=== PATIENT | female | born 1940 | race Caucasian/White ===

== ENCOUNTER 2020-08-27 10:55 | Inpatient (IN) | payer MEDICARE, OTHER ==
[~2020-08-27] VITALS: Ht 170.2 cm; Wt 74.0 kg
[~2020-08-27 10:55] MED LIST: ATENOLOL100 MG PO; HYDROCHLOROTH12.5 M1 PO; LORAZEPAM1 MG PO; OMEPRAZOLE20 MG PO; PERCOCET 7.5-31 EACH PO
[2020-08-27] MEDS ORDERED: LEVETIRACETAM500 MG PO (11:09)
[2020-08-27] MEDS ORDERED: POTASSIUM CHLO10 ME2 PO (11:09)
[2020-08-27] MEDS ORDERED: WARFARIN SODIUM1 MG PO (11:09)
[2020-08-27] MEDS ORDERED: ROSUVASTATIN CA20 MG PO (11:10)
[2020-08-27] MEDS ORDERED: HYDROCHLOROTHIA25 MG PO (11:10)
--- NOTE | 2020-08-27 15:03 | EKG ---
[facility] [address] [place], [place] [address] Signed Normal sinus rhythm T wave abnormality, consider inferior ischemia Abnormal ECG No previous ECGs available Confirmed by SAGE DAVIES MD ([id number]) on 08/27/2020 3:02:57 PM Electronically Signed By: SAGE DAVIES MD 08/27/20 1503 PATIENT NAME: RASHEL RING Electrocardiogram DATE OF : 40 PHYSICIAN: SAGE DAVIES MD REPORT #: [id number] REPORT IS CONFIDENTIAL AND NOT TO BE RELEASED WITHOUT AUTHORIZATION
[2020-08-27] MEDS ORDERED: FUROSEMIDE20 MG PO (17:41)
--- NOTE | 2020-08-27 19:30 | NUR ---
CALL LIGHT ANSWERED. 1 PA TO THE BATHROOM AND BACK TO BED. CHANGED BED LINEN. PATIENT HAD BOWEL MOVEMENT ON BED. PULL UPS PROVIDED. CALL LIGHT WITHIN REACH. LEFT.
--- NOTE | 2020-08-27 19:37 | NUR ---
RECEIVED REPORT FROM LUIGI, @ 1905. PT WITH NO NEEDS AT THIS TIME.
--- NOTE | 2020-08-27 20:15 | NUR ---
BLOOD SENT TO LAB. NADIRA OUT OF RIGHT AC IV. PT ANXIOUS ABOUT NEEDS AND FURTHER BLOOD DRAWS. IV FLUSHES WELL AFTER WITH NS.
--- NOTE | 2020-08-27 20:20 | NUR ---
ASSESSMENT COMPLETE. PT HAS TROUBLE ARTICULATING WORDS, BUT ABLE TO MAKE NEEDS KNOWN. DENIES PAIN, ON 4L O2/NC, SATS @99. TURNED TO 2L O2, WILL SPOT CHECK. DENIES SOB, DID NOT KNOW WHY SHE WAS ADMITTED. TEL#6, SR. DID HAVE TROUBLE SQUEEZING HANDS DURING ASSESSMENT, WAS ABLE TO SQUEEZE EASILY WITH THE LEFT, BUT HAD TO TRY THE RIGHT SEVERAL TIMES. CALL LIGHT WITHIN REACH. NO OTHER NEEDS.
--- NOTE | 2020-08-27 20:40 | NUR ---
PT REQUIRED APPLESAUCE WITH HER MEDICATION. DOESN'T REMEMBER THAT SHE TAKES KEPPRA, (ON HER HOME MEDICATION LIST) STATES HER KEEPS TRACK OF HER MEDICATIONS. STATES THAT SHE TRIES TO SWALLOW A PILL WITHOUT APPLESAUCE, BUT JUST CAN'T. SAID MAYBE HER BRAIN STOPS HER FROM DOING IT. NOTED THAT HER RIGHT HAND IS WEAKER THAN LEFT, PER HER NORMAL SHE SAID. LIGHTS OFF PER HER CHOICE, SMALL REMOTE TV GIVEN. ICE WATER AND TEA WITHIN REACH.
--- NOTE | 2020-08-27 22:16 | NUR ---
RECEIVED CRITICAL LAB VALUE FROM ANTWAN IN THE LAB. ON FLOOR. MD AWARE OF THE LAB VALUES.
--- NOTE | 2020-08-27 23:11 | NUR ---
PT UP TO BR WITH 1PA TO VOID SMALL AMOUNT CONCENTRATED FOUL SMELLING URINE. GAIT WEAK BUT STEADY. BACK TO BED, ROSITA WELL. BAG 1 OF 2 IV POTASSIUM INFUSING WITH LIDOCAINE. PT C/O PAIN AT INFUSION SITE. IV FLUSHED WITH BRISK BLOOD RETURN NOTED. RATE OF INFUSION DECREASED AND WARM BLANKET PLACED. PT REPORTS PAIN IMPROVED. IV CALCIUM INFUSING WNL. DENIES FURTHER NEEDS AT THIS TIME. CALL LIGHT IN REACH.
--- NOTE | 2020-08-27 23:56 | NUR ---
RECEIVED REPORT FROM JESSICA FLOYD. PATIENT IS RESTING IN BED. IV IS NO LONGER PATENT. NEW IV STARTED IN RIGHT HAND. POTASSIUM INFUSING PER ORDER. PATIENT DENIES ANY NEEDS. CALL LIGHT IN REACH.
--- NOTE | 2020-08-28 00:47 | NUR ---
PATIENT ASSISTED TO THE RESTROOM A SBA. PATIENT WAS ABLE TO VOID. PATIENT IS NOW BACK IN BED RESTING. PATIENT DENIES ANY FURTHER NEEDS. CALL LIGHT IN REACH. BED ALARM ON FOR PATIENT SAFETY.
--- NOTE | 2020-08-28 02:35 | NUR ---
PATIENTS VITALS TAKEN AND RECORDED. INTAKE AND OUPUT RECORDED. IV POTASSIUM COMPLETED. PATIENT IS NOW SL. PATIENT DENIES ANY NEEDS. CALL LIGHT IN REACH. BED ALARM ON FOR SAFETY.
--- NOTE | 2020-08-28 04:05 | NUR ---
PATIENT IS RESTING IN BED WITH EYES CLOSED. TELE #6 , HR 63, SR. CALL LIGHT IN REACH. BED ALARM ON FOR SAFETY.
--- NOTE | 2020-08-28 06:15 | NUR ---
PATIENT ASSITED TO THE RESTROOM A SBA BY JESSICA FLOYD. PATIENT WAS ABLE TO VOID. PATIENT IS NOS RESTING IN RECLINER. VITALS TAKEN AND RECORDED. INTAKE AND OUTPUT RECORDED. PATIENT DENIES ANY NEEDS. CALL LIGHT AND BELINGINGS ARE WITHIN REACH.
--- NOTE | 2020-08-28 08:48 | NUR ---
PT AWAKE IN CHAIR. IN ROOM VISITING. WARM CLOTH GIVEN AND WARM BLANKET. WHITE BOARD UPDATED. CALL LIGHT WITHIN REACH. NO FURTHER NEEDS AT THIS TIME.
--- NOTE | 2020-08-28 09:32 | NUR ---
PT SITTING UP IN CHAIR. ON COUCH. PT WANTING TO GO HOME BUT EXPLAINED TO HER THAT WE ARE STILL WAITING FOR LABS TO SEE HOW SHE IS DOING. PT UNDERSTANDS. VS STABLE. GIVEN APPLESAUCE FOR PILLS. HUNG AB. SL FLUSHED WNL. CALL LIGHT IN REACH.
--- NOTE | 2020-08-28 10:00 | NUR ---
IN TO ADMISNTER MEDICAITONS. PT 98% ON 2L NC. RA TRIAL COMPLETED. PT DESATING TO 85% ON RA. PLACED BACK ON 2L. NO NEW CONCERNS. CALL LIGHT IN REACH. PT DENEIS FURTHER NEEDS.
--- NOTE | 2020-08-28 12:15 | NUR ---
SBA TO BATHROOM. POTASSIUM STARTED. LUNCH AT BEDSIDE.
--- NOTE | 2020-08-28 14:21 | NUR ---
IN RM WITH PT, BOTH ASLEEP. MARIEL WATKINS SUGGESTED I COME BACK LATER. WILL RETURN AND FOLLOW NEEDED
--- NOTE | 2020-08-28 19:05 | NUR ---
BEDSIDE REPORT RECEIVED FROM MARIEL WATKINS. pt RESTING IN BED, INVOLVED IN REPORT. NOT ORIENTED TO EVENT, REORIENTATION PROVIDED. IV SITES SL. TELE BATTERY REPLACED AT THIS TIME. 1L OXYGEN BY NC IN PLACE.
--- NOTE | 2020-08-28 21:28 | NUR ---
pt SLEEPING, AWAKENS TO VOICE. ASSESSMENT COMPLETE. SPO2 87-88% WITH 1L OXYGEN BY NC IN PLACE, TITRATED TO 3L OXYGEN BY NC, SPO2 95% AFTER A FEW MINUTES. pt DENIES SOB. DENIES COUGHING. CRACKLES AUSCULTATED RLL. DENIES ANY PAIN. DENIES TOILETING NEEDS. REPOSITIONED IN BED WITH MARIEL LOPEZ AND PATIENT ASSIST. CALL LIGHT IN REACH. BED ALARM SET FOR PATIENT SAFETY. ORIENTED TO SELF, LOCATION, NOT EVENT. STATES IS INCORRECT, BIRTHDAY IS 21ST.
--- NOTE | 2020-08-28 23:11 | NUR ---
IV ALARMING. PT WOKE, SMILED THEN CLOSED EYES AGAIN. RESP EVEN AND UNLABORED. ABX COMPLETE, SL INFUSING
--- NOTE | 2020-08-28 23:49 | NUR ---
IV PUMP ALARMING, IV ANTIBIOTIC INFUSION COMPLETE. pt RESTING IN BED AWAKE. DENIES NEEDS AT THIS TIME. HR 65 ON TELE 6. CALL LIGHT IN REACH. BED ALARM ON.
--- NOTE | 2020-08-29 00:15 | NUR ---
CALL LIGHT ANSWERED. SBA TO RESTROOM AND BACK TO BED. ICE PROVIDED REQUESTED. CALL LIGHT WITHIN REACH. BED ALARM ON.
--- NOTE | 2020-08-29 01:57 | NUR ---
pt RESTING IN BED WITH EYES CLOSED. HR 60 ON TELE 6, SR. LIGHTS OFF IN ROOM, BED ALARM ON.
--- NOTE | 2020-08-29 04:27 | NUR ---
CALL LIGHT ANSWERED. SBA TO RESTROOM FOR VOID AND BACK TO BED. ASSESSMENT COMPLETE. LUNG SOUNDS CLEAR THROUGHOUT ALL LOBES, DIMINISED IN BASES. SPO2 95% WITH 3L OXYGEN BY NC IN PLACE. HR 66, NSR ON TELE 6. pt REQUESTING TO REST, NO ADDITIONAL NEEDS AT THIS TIME. BED ALARM ON.
--- NOTE | 2020-08-29 06:50 | NUR ---
CALL LIGHT ANSWERED. SBA TO RESTROOM FOR VOID. VERBALIZES UNDERSTANDING TO USE CALL LIGHT WHEN FINSIHED. BREAKFAST ORDER PLACED. COFFEE PROVIDED.
--- NOTE | 2020-08-29 07:15 | NUR ---
PATIENT IS BACK IN BED NOW FROM BATHROOM. NO OTHER NEEDS AT THIS TIME.
--- NOTE | 2020-08-29 08:45 | NUR ---
INTO PATIENT ROOM, CASE MANAGEMENT ASSESSMENT COMPLETED. PATIENT VERONICA IS AT THE BEDSIDE. PATIENT AND SPOUSE STATES THERE ARE 3 STEPS LEADING INTO THE HOME WITH HAND RAILS IN PLACE. PATIENT STATES SHE DOES NOT HAVE DIFFICULTIES WITH MOBILITY AND DOES NOT REQUIRE ANY DME AT THIS TIME. PATIENT SPOUSE STATES THEY DO OWN A WALKER IF NEEDED. KARLANETS STATES HE IS ABLE TO HELP THE PATIENT AT HOME AND FEELS SAFE WITH THE PLAN TO DISCHARGE HOME. PER PATIENT AND SPOUSE NO FINANCIAL NEEDS AT THIS TIME. ADVISED PATIENT TO ADVISE STAFF IF ANY OTHER NEEDS ARISE.
--- NOTE | 2020-08-29 10:24 | NUR ---
HELPED PATIENT T O THE BATHROOM AND THEN TO THE CHAIR FOR BREAKFAST. PATIENTS VS AND I&O'S ARE CHARTED. IN THE ROOM. CALL LIGHT IN REACH NOTHING NEEDED AT THIS TIME
[2020-08-29] MEDS ORDERED: DOXYCYCLINE HY100 MG PO (10:55)
--- NOTE | 2020-08-29 11:15 | NUR ---
PER DR. DAVIES PATIENT WILL REQUIRE HOME 02. DR. DAVIES TO WRITE ORDER AND COMPLETE DISCHARGE SUMMARY. THIS RN INTO PATIENT ROOM TO DISCUSS HOME O2 OPTIONS. PATIENT WISHES TO GO THROUGH [facility] [place] SINCE THAT IS WHERE HER RECVS HIS OXYGEN FROM. WILL COMPLILE NOTES AND ORDER TO FAX TO [facility] [place]. THIS RN TO UPDATE PATIENT WITH RESPONSE FOR O2 TEE.
[2020-08-29] MEDS ORDERED: CALCIUM CARBON200 MG PO (11:24)
--- NOTE | 2020-08-29 15:04 | NUR ---
CONNECTED WITH PT'S IN [facility]. HE IS VERY PLEASED WITH CARE AND IMPROVEMENT IN PT. HE STATED HE WAS AFRAID HE WOULD NOT GET TO BRING HER HOME WHEN PT WAS ADMITTED. THANKFUL FOR CARE FROM [facility] STAFF.GAVE FURTHER ENCOURAGEMENT HE WAS PREPARING FOR DC
== END 2020-08-29 14:30 | disposition home or self-care (01) | DRG 190 ==
LOC: ED 10:55 → MS 16:16
PROVIDERS: ADMIT Internal Medicine; ATTEND Internal Medicine
DX: J44.0 Chronic obstructive pulmonary disease with (acute) lower respiratory infection (principal); J12.9 Viral pneumonia, unspecified; J15.4 Pneumonia due to other streptococci; I50.20 Unspecified systolic (congestive) heart failure; Z20.822 Contact with and (suspected) exposure to COVID-19; I11.0 Hypertensive heart disease with heart failure; I69.320 Aphasia following cerebral infarction; I99.8 Other disorder of circulatory system; G89.4 Chronic pain syndrome; E87.6 Hypokalemia; E83.42 Hypomagnesemia; R79.1 Abnormal coagulation profile; T50.1X5A Adverse effect of loop [high-ceiling] diuretics, initial encounter; Z87.891 Personal history of nicotine dependence; Z88.8 Allergy status to other drugs, medicaments and biological substances; Z88.2 Allergy status to sulfonamides; Z79.899 Other long term (current) drug therapy; Z79.01 Long term (current) use of anticoagulants; Z79.891 Long term (current) use of opiate analgesic
CPT/HCPCS: 36415; 71045; 80048; 80053; 83735; 83880; 84484; 85025; 85379; 85610; 85730; 93005; 93010; 93306; 94640; 94760; 94761; 99285-25; C9803; J0610; J3430; J3475; J3480; J7060; U0003

== ENCOUNTER 2020-09-10 11:13 | Observation (INO) | payer MEDICARE, OTHER ==
[~2020-09-10] VITALS: Ht 170.2 cm; Wt 73.6 kg
[~2020-09-10 11:13] MED LIST changes: +CALCIUM CARBON200 MG PO; +DOXYCYCLINE HY100 MG PO; +FUROSEMIDE20 MG PO; +HYDROCHLOROTHIA25 MG PO; +LEVETIRACETAM500 MG PO; +POTASSIUM CHLO10 ME2 PO; +ROSUVASTATIN CA20 MG PO; +WARFARIN SODIUM1 MG PO
--- NOTE | 2020-09-10 12:41 | EKG ---
[facility] [address] [place], [place] [address] Signed Normal sinus rhythm Normal ECG When compared with ECG of 27-AUG-2020 11:10, Nonspecific T wave abnormality has replaced inverted T waves in Inferior leads Confirmed by KADE SALGADO DO ([id number]) on 09/10/2020 12:41:17 PM Electronically Signed By: KADE SALGADO DO 09/10/20 1241 PATIENT NAME: MARÍA ELENARASHELTD ALMONTE Electrocardiogram DATE OF : 40 PHYSICIAN: KADE SALGADO DO REPORT #: [id number] REPORT IS CONFIDENTIAL AND NOT TO BE RELEASED WITHOUT AUTHORIZATION
--- OUTSIDE RECORDS SUMMARY | 2020-09-10 13:34 | XMS ---
PreManage Notification: RASHEL RING Security Insurance Follow Up Rep Events No recent Security Events currently on file CRITERIA MET - [facility] - 2 Visits in 30 Days CARE PROVIDERS There are no care providers on record at this time. Kanchan has no Care Guidelines for this patient. Subha VISIT COUNT (12 MO[address] [facility] TOTAL 2 NOTE: Visits indicate total known visits. ED/C VISIT TRACKING (12 MO.) 09/10/2020 11:13 [facility] [place] TYPE: Emergency COMPLAINT: - POSS STROKE 08/27/2020 10:55 [facility] TYPE: Emergency COMPLAINT: - SOB INPATIENT VISIT TRACKING (12 MO.) 08/27/2020 16:16 [facility] TYPE: Medical Surgical COMPLAINT: - PNEUMONIA DIAGNOSES: - Viral pneumonia, unspecified - Chronic obstructive pulmonary disease with (acute) lower respiratory infection - Aphasia following cerebral infarction - Pneumonia due to other streptococci - adjunct faculty for medical terminology (current) use of anticoagulants - Adverse effect of loop [high-ceiling] diuretics, initial encounter - Personal history of nicotine dependence - Hypomagnesemia - Pneumonia, unspecified organism - Unspecified systolic (congestive) heart failure - Hypokalemia - Allergy status to sulfonamides - Hypertensive heart disease with heart failure - Other fci (current) drug therapy - Other disorder of circulatory system - adjunct faculty for medical terminology (current) use of opiate analgesic - Abnormal coagulation profile - Allergy status to other drugs, medicaments and biological substances - Chronic pain syndrome [email or web address]
--- NOTE | 2020-09-10 16:23 | NUR ---
PT ARRIVED TO FLOOR MELISSA STRETCHER. TELE 8 PLACED FOR RIDE FROM ED TO MED/SURG ROOM. PT ABLE TO STAND AND TRANSFER TO BED. 3L NC IN PLACE. VITALS TAKEN AND STABLE. AT BEDSIDE TO ASSIST IN ANSWERING HYSTORY QUESTIONS. PT HAS PRETTY SEVERE EXPRESSIVE APHAGIA. NIH STROKE SCALE COMPLETED AND PLACED IN CHART. ASSESSMENT COMPLETED. BEDSIDE SWALLOW EVALUATION COMPLETED AND PLACED IN CHART. PT WITH NO SWALLOWING DIFFICULTIES. DIET ADVANCED TO REGULAR. CALL LIGHT IN REACH,.
--- NOTE | 2020-09-10 17:43 | NUR ---
PT ATTEMTED TO GET OOB TO GO TO BATHROOM ALONE. THIS NUSE TO BEDSIDE TO ASSIST. PT IS SBA TO BATHROOM. VOIDED 400ML THEN BACK TO BED. VITALS TAKEN. CALL LIGHT IN REACH. BED ALARM LEFT OFF BECAUSE IS AT BEDSIDE.
--- NOTE | 2020-09-10 18:30 | NUR ---
PT SAT UP IN BED FOR DINNER. DAUGHTER AT BEDSIDE. CALL LIGHT IN REACH.
--- NOTE | 2020-09-10 19:10 | NUR ---
REPORT RECEIVED FROM DAY SHIFT RN. PT LYING IN BED ALERT. GARBLED SPEECH NOTED. IVF INFUSING. CALL LIGHT IN HAND. PT DENIES NEEDS AT THIS TIME. WHITE BOARD UPDATED. BED ALARM FOR SAFETY.
--- NOTE | 2020-09-10 20:55 | NUR ---
pt AWAKE RESTING IN BED WATCHING TV. DENIES TOILETING NEEDS. VSS. 2L OXYGEN BY NC IN PLACE, SPO2 98%. ICE WATER PROVIDED. CALL LIGHT IN REACH.
--- NOTE | 2020-09-10 22:16 | NUR ---
EVENING ASSESSMENT COMPLETE. SCHEDULED MEDS ADMINISTERED PER EMAR. NO SWALLOWING ISSUES NOTED. PT DENIES PAIN OR NAUSEA. SLIGHT WEAKNESS NOTED IN RIGHT HAND INDUSTRIAL FURNACE FABRICATOR STRENGTH. SLIGHT RIGHT SIDE FACIAL DROOP. PT WITH GARBLED SPEECH. TELE #8. HR 60'S. 2L/NC IN PLACE. IVF INFUSING ORDERED. PT DENIES QUESTIONS OR CONCERNS. CALL LIGHT IN REACH. BED ALARM FOR SAFETY.
--- NOTE | 2020-09-11 00:16 | NUR ---
VS AND NEURO CHECK COMPLETE. NEURO CHECK UNCHANGED FROM PREVIOUS ASSESSMENT. UP TO BR WITH SBA TO VOID. GAIT STEADY. BACK TO BED, ROSITA WELL. WARM BLANKET PROVIDED. BED ALARM FOR SAFETY. CALL LIGHT IN REACH.
--- NOTE | 2020-09-11 00:36 | NUR ---
BED ALARM SOUNDING. SBA TO BR TO VOID AND HAVE XL LOOSE BM. PT ABLE TO DO OWN FRANCISCA CARE. BACK TO BED, ROSITA WELL. DENIES FURTHER NEEDS. CALL LIGHT IN REACH. BED ALARM ON.
--- NOTE | 2020-09-11 02:18 | NUR ---
PT RESTING IN BED WITH EYES CLOSED, NAD. BED ALARM FOR SAFETY.
--- NOTE | 2020-09-11 04:12 | NUR ---
PT RESTING ON LEFT SIDE IN BED WITH EYES CLOSED. RESPIRATIONS EVEN. TELE #8 SINUS LUTHER, HR 59.
--- NOTE | 2020-09-11 05:57 | NUR ---
CALL LIGHT ANSWERED. PT UP TO BR WITH SBA TO VOID AND HAVE LOOSE BM. PT ABLE TO DO OWN FRANCISCA CARE. BACK TO BED. GAIT WEAK BUT STEADY. ROSITA WELL. VS AND I&O COMPLETE. ASSESSMENT COMPLETE. NEURO ASSESSMENT UNCHANGED. COFFEE AND FRESH WATER PROVIDED. 2L/NC IN PLACE. IVF INFUSING. PT DENIES PAIN. TELE #8. SR. HR 60'S.
--- NOTE | 2020-09-11 06:21 | NUR ---
SPOUSE IN ROOM TO VISIT. ASSISTED WITH MRI PATIENT SCREENING FORM. PT SITTING UP IN BED DRINKING COFFEE. BREAKFAST ORDER TAKEN AND CALLED TO KITCHEN.
--- NOTE | 2020-09-11 06:48 | NUR ---
CRITICAL LAB VALUE RECEIVED. DR. SALGADO NOTIFIED. NEW TELEPHONE ORDERS RECEIVED VERIFIED WITH READ BACK METHOD.
--- NOTE | 2020-09-11 07:05 | NUR ---
REPORT RECEIVED FROM CINDY FLOYD. PT SITTING UP IN BED, ALERT AND ORIENTED, WATCHING TV. IVF INFUSING WNL, ON 2L O2 NC. PT STATES NO NEEDS AT THIS TIME. TELE #[address] WILL CONTINUE PLAN OF CARE.
[2020-09-11] MEDS ORDERED: FUROSEMIDE20 MG PO (09:57)
--- NOTE | 2020-09-11 11:45 | NUR ---
Pt lives in [place] in a 1 story home with 5 steps into the Home. She lives with her spouse, Shine, and her daughter, Bridgette. Pt's speech is understandable, but slow. Daughter feels it has improved since admission. Pt use 02 at home. Pt is upset she is having to stay and is wanting to go home, she is upset she had an MRI. Daughter encourag ing pt to stay and states dad wants you to stay. Pt accepts this. Daughter and pt plan on pt to discharging to home when cleared medically. Daughter denies needs for pt to go home. Pt and daughter deny issues with pt walking up and down steps. They have hand rails in place.
--- NOTE | 2020-09-11 11:57 | NUR ---
PATIENT IS SITTING ON BED VISTING WITH DAUGHTER. PATIENT AND DAUGHTER DENY ANY NEEDS. CALL LIGHT IN REACH.
--- NOTE | 2020-09-11 13:41 | NUR ---
PATIENT IS RESTING IN RECLINER VISITING WITH . PATIENT AND DENIES ANY NEEDS. CALL LIGHT IN REACH.
[2020-09-11] MEDS ORDERED: MAGOX 400400 MG PO (13:50)
--- NOTE | 2020-09-11 13:50 | NUR ---
MED REC COMPLETE
--- NOTE | 2020-09-11 16:07 | NUR ---
PATIENT IS RESTING IN RECLINER. VISITING WITH FAMILY. VITALS TAKEN AND RECORDED. INTAKE AND OUTPUT RECORDED. PATIENT DENIES ANY NEEDS. ALL QUESTIONS ANSWERED. CALL LIGHT AND BELONGINGS ARE WITHIN REACH.
--- NOTE | 2020-09-11 19:11 | NUR ---
PATIENT IS RESTING IN RECLINER. HAS LEFT FOR THE EVENING NO MEEDS NOTED.
--- NOTE | 2020-09-11 19:38 | NUR ---
REPORT RECEIVED FROM DAY SHIFT RN. PT SITTING IN RECLINER WATCHING TV. DENIES NEEDS AT THIS TIME. CALL LIGHT IN HAND. WHITE BOARD UPDATED.
--- NOTE | 2020-09-11 20:56 | NUR ---
PT UP TO BR WITH SBA TO VOID. GAIT UNSTEADY AT TIMES. BACK TO BED, ROSITA WELL. EVENING ASSESSMENT COMPLETE. SCHEDULED MEDS ADMINISTERED PER EMAR WITH APPLE SAUCE. NO SWALLOWING ISSUES NOTED. PT DENIES PAIN OR NAUSEA. WATER VALVE REPAIRER STRENGTH MUCH IMPROVED ON RIGHT SIDE FROM LAST NOC. PT ABLE TO SPEAK MORE CLEAR SENTENCES. EXPRESIVE APHASIA STILL NOTED. 2L/NC IN PLACE. IVF INFUSING ORDERED. TELE #8 SR. HR 60'S. PT DENIES QUESTIONS OR CONCERNS. CALL LIGHT IN REACH. BED ALARM FOR SAFETY.
--- NOTE | 2020-09-11 23:09 | NUR ---
NEW BAG IVF INFUSING WNL ORDERED. pt RESTING IN BED WATCHING TV. NO REQUESTS AT THIS TIME.
--- NOTE | 2020-09-12 01:09 | NUR ---
PT RESTING IN BED WITH EYES CLOSED, NAD. RESPIRATIONS EVEN. IVF INFUSING. O2 IN PLACE. TELE #8 SINUS LUTHER. HR HIGH 50'S. BED ALARM FOR SAFETY.
--- NOTE | 2020-09-12 03:57 | NUR ---
PT RESTING IN BED WITH EYES CLOSED, NAD.
--- NOTE | 2020-09-12 05:35 | NUR ---
BED ALARM SOUNDING. PT SITTING ON SIDE OF BED. UP TO BR WITH SBA TO VOID. GAIT STEADY. BACK TO BED, ROSITA WELL. VS AND I&O COMPLETE. NEURO CHECK WNL. PT DENIES PAIN OR SOB. 2L/NC IN PLACE. NO FURTHER NEEDS. CALL LIGHT IN REACH. BED ALARM FOR SAFETY.
--- NOTE | 2020-09-12 06:45 | NUR ---
PT UP TO BR WITH SBA TO VOID. GAIT STEADY. BACK TO BED, ROSITA WELL. FRESH WATER AND COFFEE PROVIDED.
--- NOTE | 2020-09-12 07:27 | NUR ---
Patient awake resting in bed, alert and oriented x4. Patient denies pain at this time. Patient reports sleeping well last night. Breakfast ordered for patient. Patient reports she wants to go home today. Personal supplies and call light within reach. Close to RN station.
--- NOTE | 2020-09-12 07:30 | NUR ---
Spoke with Radha and her spouse. She is anxious to discharge to home and spouse is in the room.
--- NOTE | 2020-09-12 09:00 | NUR ---
Spoke with OT and ST and they are recommending pt to have OP therapy. Dr. Gee updated and will write orders.
--- NOTE | 2020-09-12 10:32 | NUR ---
Face sheet, dc summary, PT/OT/ST notes, Order faxed to OP therapy for pt to cont. therapy.
== END 2020-09-12 10:00 | disposition home or self-care (01) ==
LOC: ED 11:13 → MS 11:14
PROVIDERS: ADMIT Student in an Organized Health Care Education/Training Program; ATTEND Student in an Organized Health Care Education/Training Program
DX: I63.89 Other cerebral infarction (principal); G81.91 Hemiplegia, unspecified affecting right dominant side; I69.320 Aphasia following cerebral infarction; R29.710 NIHSS score 10; E87.6 Hypokalemia; E83.42 Hypomagnesemia; E83.51 Hypocalcemia; H05.89 Other disorders of orbit; Z20.822 Contact with and (suspected) exposure to COVID-19; I10 Essential (primary) hypertension; J44.9 Chronic obstructive pulmonary disease, unspecified; Z79.01 Long term (current) use of anticoagulants; Z99.81 Dependence on supplemental oxygen; Z87.891 Personal history of nicotine dependence; Z88.2 Allergy status to sulfonamides; Z88.8 Allergy status to other drugs, medicaments and biological substances
CPT/HCPCS: 36415; 70450; 70496; 70498; 70551; 71045; 80048; 80053; 83735; 84100; 84484; 85025; 85610; 92507; 92523; 93005; 93010; 96365; 96376; 97116; 97162; 99285-25; C9803; G0378; J0610; J3475; J7030; J7121; U0003

== ENCOUNTER 2021-04-25 19:01 | Inpatient (IN) | payer MEDICARE, OTHER ==
[~2021-04-25] VITALS: Ht 170.2 cm; Wt 74.7 kg
[~2021-04-25 19:01] MED LIST changes: +MAGOX 400400 MG PO
--- NOTE | 2021-04-26 00:21 | NUR ---
PT ARRIVED TO [facility] AT 2345 AND WAS MOVED OVER TO BED PRIOR TO THIS RN ENTERING THE ROOM. VS TAKEN AND ENTERED BY ED ROY. PT IS ON TELE AND CPOX. SHE DROPPED TO 88% ON 2LNC INCREASED O2 TO 3LNC AND SHE IS AT 91% PT ORIENTED TO USE OF CALL LIGHT AND BED ALARM IS ON. PT IS CLOSE TO RN STATION. SHE DENIES FURTHER NEEDS.
--- NOTE | 2021-04-26 01:21 | NUR ---
PT GIVEN EDCUATION ON ALL MEDICATIONS WITH POSSIBLE SIDE EFFECTS, SHE DECLINED TO TAKE THE REMDESIVIR ORDER. SHE AGREED TO ALL OTHER MEDICATIONS ORDERED AT THIS TIME. SHE TOOK PILLS WITH APPLESAUCE. CURRENTLY ON BEDPAN, SHE DECLINED TO GET UP TO BEDSIDE COMMODE.
--- NOTE | 2021-04-26 02:21 | NUR ---
PT RESTING IN BED EYES CLOSED RR REGULAR, 91% OXYGEN SATURATION ON 3L PER N.C. NO DISTRESS NOTED.
--- NOTE | 2021-04-26 04:29 | NUR ---
PT PLACED ON 4L OXYMASK SHE IS DESATURATING WITH N.C. SHE IS SLEEPING AND MOUTH BREATHING. PT NOW 89-91% OXYGEN SATURATION.
--- NOTE | 2021-04-26 05:09 | NUR ---
PT RESTING QUIETLY IN BED EYES CLOSED RR REGULAR 22 BPM, NO DISTRESS, ON 4L OXIMASK 90% AT THIS TIME.
--- NOTE | 2021-04-26 05:49 | NUR ---
PT HAS HAD BM AND URINE OUT AFTER ADMISSION, SHE HAS SLEPT WELL OVER SHIFT, SHE IS A MOUTH BREATHER SO THEN PLACED ON OXIMASK TO MAINTAIN 89-92% OXYGEN SATURATION WHILE SLEEPING. SHE HAS NOT REPORTED ANY PAIN, SHE DID REFUSE TO HAVE REMDESIVIR ADMINISTERED ON ADMISSION. SHE HAS BEEN USING BED MARTIN SHE REPORTS SHE IS TOO WEAK TO STAND AND DECLINED TRYING TO USE BEDSIDE COMMODE. SHE IS NOTED TO HAVE MILD EXPRESSIVE APHASIA, SHE HAS HISTORY OF CVA X2.
--- NOTE | 2021-04-26 06:56 | NUR ---
pt assisted to bed madera had bm and voided 200ml. pt reports no pain or nausea
--- NOTE | 2021-04-26 07:30 | NUR ---
Shift report received from MARIEL Tijerina, pt resting safely in bed w/ call light in reach and eyes closed, RR even and unlabored on 4L, O2 sats 90% per Tele #[phone] cpox
--- NOTE | 2021-04-26 09:28 | NUR ---
PT SITTING IN CHAIR WITH PHONE IN HAND, AWAITING A CALL FROM HER . CALL LIGHT WITHIN REACH, NO FURTHER NEEDS AT THIS TIME.
--- NOTE | 2021-04-26 10:00 | NUR ---
Pt sitting up in chair w/ call light in reach. Morning assesment complete and scheduled meds given per provider order. Pt denies any other needs at this time
--- NOTE | 2021-04-26 12:00 | NUR ---
Pt sitting up in chair w/ call light in reach, pt on phone w/ daughter no needs at thisn time
--- NOTE | 2021-04-26 13:32 | EKG ---
[facility] [address] [place], [place] [address] Signed Normal sinus rhythm Normal ECG When compared with ECG of 10-SEP-2020 11:55, QT has shortened Confirmed by KADE SALGADO DO ([id number]) on 04/26/2021 1:32:39 PM Electronically Signed By: KADE SALGADO DO 04/26/21 133 PATIENT NAME: RASHEL RING SUZY Electrocardiogram DATE OF : 40 PHYSICIAN: KADE SALGADO DO REPORT #: [id number] REPORT IS CONFIDENTIAL AND NOT TO BE RELEASED WITHOUT AUTHORIZATION
--- NOTE | 2021-04-26 14:00 | NUR ---
Pt sitting up in chair w/ call light in reach, talking on phone, pt denies any needs at this time
--- NOTE | 2021-04-26 14:23 | NUR ---
PT IN CHAIR WATCHING TV. FRESH COFFEE BROUGHT WITH LOTS OF CREAM. CALL LIGHT WITHIN REACH, NO FURTHER NEEDS. NO AFTERNOON OUPUT. MARIEL AREVALO NOTIFIED.
--- NOTE | 2021-04-26 16:54 | NUR ---
IN TO ANSWER PT'S CALL LIGHT. PT NEEDS TO GO TO THE BR. AMBULATED PT FROM CHAIR TO BR USING FWW. PT NEEDED VERBAL DIRECTION BUT WAS STEADY ON FEET. PERICARE DONE. AMBULATED PT BACK TO CHAIR VIA FWW AND VERBAL CUES. CALL LIGHT WITHIN REACH, NO FURTHER NEEDS AT THIS TIME.
--- NOTE | 2021-04-26 18:06 | NUR ---
PT SITTING UP IN CHAIR W/ CALL LIGHT IN REACH, EATING DINNER. IV FLUIDS COMPLETE, PT SALINE LOCKED BY MARIEL TAO, NO FURTHER NEEDS AT THIS TIME
--- NOTE | 2021-04-26 18:42 | NUR ---
PT REFUSED DINNER, SAYING SHE COULD NOT HANDLE OR EAT ANYTHING THAT SHE WAS GIVEN. THIS MANAGER HOME IMPROVEMENT OFFERED SOME ALTERNATIVES TO PT, SUCH JELLO, AN ENSURE, BROTH, ETC. PT REFUSED. FRESH COFFEE BROUGHT WITH LOTS OF CREAM PER PT REQUEST. CALL LIGHT WITHIN REACH, NO FURTHER NEEDS AT THIS TIME.
--- NOTE | 2021-04-26 20:00 | NUR ---
BEDSIDE REPORT PT SITTING UP IN RECLINER, TALKING ON PHONE. NO DISTRESS NOTED
--- NOTE | 2021-04-26 23:50 | NUR ---
ROUNDING INTO PT ROOM, PT SITTING UP IN RECLINER. SHE VERBALIZES SHE HAS BEEN WAITING TO VISIT WITH THIS RN. THIS RN AND PT LIVE IN SAME COMMUNITY. PT HAS PHONE CALL FROM DAUGHTER AT THIS TIME. WILL ROUNDING AGAIN LATER.
--- NOTE | 2021-04-27 01:50 | NUR ---
IN TO ASSIST BACK TO BED, PT NEEDED TO VOID AND BM, NO FURTHER NEEDS
--- NOTE | 2021-04-27 04:10 | NUR ---
PT HAS BEEN ONE PERSON ASSIST TO BATHROOM AND TRANSFERS, SHE REFUSED MELATONIN AT , SHE SAID, "IM A NIGHT OWL, BUT WHEN I DECIDE TO SLEEP I ODNT HAVE ANY TROUBLE SLEEPING" PT HAS BEEN UP ALL SHIFT. NO REPORT OF PAIN OR NAUSEA SHE HAS BEEN ON 3.5L OXYGEN WITH SATURATIONS 90-91% PER CONTINUOUS PULSE OXIMETRY. APHASIA HAS IMPROVED SINCE ADMISSION. STRENGTH INPROVEMENT NOTED FROM ADMISSION.
--- NOTE | 2021-04-27 04:30 | NUR ---
PT RESTING IN BED EYES CLOSED RR 20 BPM, NO DISTRESS NOTED PT ON 3L 95% OXYGEN SATURATION PER CONTINUOUS PULSE OXIMETRY.
--- NOTE | 2021-04-27 07:42 | NUR ---
Patient sitting up in chair, a&ox4. Patient's respirations even and non labored. Patient has no distress. SP02 95% on 3L per nc.
--- NOTE | 2021-04-27 09:03 | NUR ---
PT VERY CHATTY. PT IN CHAIR WITH FRESH COFFEE, WATCHING TV. CALL LIGHT WITHIN REACH, NO FURTHER NEEDS AT THIS TIME.
--- NOTE | 2021-04-27 12:50 | NUR ---
Patient sitting up in chair, respirations non labored, no acute distress. Patient reports she is feeling pretty well today, no chest pain or sob at rest. Patient is on 1.5L oxygen per nc. Fresh water and coffee provided. Encouraged patient to call staff if she has needs. Personal supplies and call light within reach.
--- NOTE | 2021-04-27 14:12 | NUR ---
PT SITTING IN RECLINER WATCHING TV. CALL LIGHT WITHIN REACH NO FURTHER NEEDS AT THIS TIME
--- NOTE | 2021-04-27 19:36 | NUR ---
REPORT RECEIVED FROM DAY SHIFT RN. PT LYING IN BED RESTING WITH EYES CLOSED. RESPIRATIONS EVEN. SpO2 92% ON 2L/NC. HR 50'S. CALL LIGHT IN REACH. BED ALARM FOR SAFETY.
--- NOTE | 2021-04-27 21:56 | NUR ---
EVENING ASSESSMENT COMPLETE. SCHEDULED MEDS ADMINISTERED PER EMAR. PRN FOR GENERALIZED PAIN ADMINISTERED PER EMAR. SBA WITH FWW TO BR TO VOID 350 ML YELLOW URINE. STAFF ASSIST WITH FRANCISCA CARE. BACK TO BED, ROSITA WELL. PT DENIES CHEST PAIN OR SOB. 2L/NC IN PLACE. SpO2 94%. HR 50'S. FRESH WATER AND WARM BLANKETS PROVIDED. PT DENIES FURTHER NEEDS. CALL LIGHT IN REACH. BED ALARM FOR SAFETY.
--- NOTE | 2021-04-27 23:34 | NUR ---
PT RESTING IN BED ON RIGHT SIDE WITH EYES CLOSED. RESPIRATIONS EVEN. CALL LIGHT IN REACH. BED ALARM FOR SAFETY.
--- NOTE | 2021-04-28 00:15 | NUR ---
SpO2 86-90% ON 2L/NC. PT RESTING ON RIGHT SIDE. IN ROOM TO TITRATE OXYGEN. PT NOW ON 4L/NC. SpO2 88-91%.
--- NOTE | 2021-04-28 01:50 | NUR ---
BED ALARM SOUNDING. IN ROOM TO ASSIST PT TO BR WITH FWW. GAIT STEADY. BACK TO BED, ROSITA WELL. PT DENIES PAIN OR SOB. 5L/NC IN PLACE. SpO2 92%. PT PLEASANTLY CONFUSED UPON ENTERING ROOM. REORIENTS EASILY. DENIES FURTHER NEEDS. CALL LIGHT IN REACH. BED ALARM FOR SAFETY.
--- NOTE | 2021-04-28 03:18 | NUR ---
PT RESTING IN BED WITH EYES CLOSED. RESPIRATIONS EVEN. BED ALARM IN PLACE.
--- NOTE | 2021-04-28 05:45 | NUR ---
VS AND I&O COMPLETE. PT UP TO BR WITH SBA AND FWW TO VOID. STAFF ASSIST WITH FRANCISCA CARE. BACK TO BED, ROSITA WELL. PT DENIES SOB. 5L/NC IN PLACE. RESPIRATIONS EVEN. PT DENIES NEEDS. LAB IN ROOM FOR MORNING DRAW.
--- NOTE | 2021-04-28 08:37 | NUR ---
Patient sitting up in bed eating breakfast, no distress. Patient's oxygen at 3L per nc, respirations even and non labored. Patient reports she is unsure if she slept well last night. SP02 92% on 3L per nc. Patient provided with fresh coffee and water. Patient has no needs at time. Bed alarm in place. Patient reports she is worried about her at home as he also has covid she states. Encouraged patient to call for help if she has needs.
--- NOTE | 2021-04-28 09:19 | NUR ---
ASSISTED PT TO BR WITH FWW. PT VOIDED. FRESH BRIEF IN PLACE. PT DID HER OWN PERICARE THIS MORNING. HANDS CLEANED. AMBULATED PT TO CHAIR FWW. CALL LIGHT WITHIN REACH NO FURTHER NEEDS AT THIS TIME.
--- NOTE | 2021-04-28 11:11 | NUR ---
Lisandra, patient's reported daughter updated via phone regarding pt status and plan of care. Discussed with Lisandra that her mother is now on 5L oxygen per nc, sp02 94% per cpox. Lisandra requesting that Dr. Gee call and update her or her sister regarding plan of care moving forward. This RN to relay message to ed.
--- NOTE | 2021-04-28 11:31 | NUR ---
Bridgette, patient's reported POA called and updated with plan of care. Bridgette reports she would like the provider to call her for an update and she will update other family members regarding pt's plan of care. Will notify Dr. Gee of requested call back from Bridgette.
--- NOTE | 2021-04-28 11:58 | NUR ---
Patient's oxygen decreased to 4L per nc, sp02 94% at this time. Patient sitting up in chair eating lunch at this time, no distress. Patient denies sob and chest pain. No current needs. Personal supplies and call light within reach.
--- NOTE | 2021-04-28 12:40 | NUR ---
Patient's oxygen decreased to 2L per nc, sp02 93% at this time. Patient reports she did not sleep well, assisted pt back to bed for a nap. Patient denies needs. Fresh water to bedside. Personal supplies and call light within reach.
--- NOTE | 2021-04-28 16:00 | NUR ---
Tylenol 650mg po admin for generalized pain.
--- NOTE | 2021-04-28 19:30 | NUR ---
REPORT RECEIVED FROM DAY SHIFT RN. PT SITTING IN RECLINER WITH EYES CLOSED. RESPIRATIONS EVEN. SpO2 93% ON 3L/NC. HR 60'S. CALL LIGHT IN REACH. PT IN VIEW OF NURSES STATION.
--- NOTE | 2021-04-28 19:45 | NUR ---
SBA. THIS GRAPHIC DESIGN INTERN HELPED PATIENT TO USE THE BATHROOM. USING WALKER. PATIENT IS IN BED NOW. V/S AND I&O'S DONE AND RECORDED. CALL LIGHT WITHIN REACH.
--- NOTE | 2021-04-28 20:50 | NUR ---
EVENING ASSESSMENT COMPLETE. SCHEDULED MEDS ADMINISTERED PER EMAR WITH APPLE SAUCE. PT DENIES PAIN OR NAUSEA. NO COMPLAINTS OF SOB. 3L/NC IN PLACE. SpO2 93%. RESPIRATIONS EVEN. BLE EDEMA NOTED. ASSISTED PT TO REPOSITION IN BED. NO FURTHER NEEDS AT THIS TIME. CALL LIGHT IN REACH. BED ALARM FOR SAFETY.
--- NOTE | 2021-04-28 23:45 | NUR ---
PT RESTING IN BED WITH EYES CLOSED. RESPIRATIONS EVEN. SpO2 92%. 3L/NC IN PLACE. HOB ELEVATED. CALL LIGHT IN REACH. BED ALARM FOR SAFETY.
--- NOTE | 2021-04-29 02:05 | NUR ---
PT RESTING IN BED WITH EYES CLOSED. RESPIRATIONS EVEN. SpO2 90% ON 3L/NC. CALL LIGHT IN REACH. BED ALARM ON.
--- NOTE | 2021-04-29 03:41 | NUR ---
THIS ELECTRONIC TECHNICIAN AND ELECTRONIC TECHNICIANNorm DANIELS WENT INTO THE ROOM. CHANGED TELE BATTERY. CHECKED IF PATIENT NEEDS TO USE THE REST ROOM PATIENT STATED NOT NEEDING TO USE THE TOILET AT THIS TIME. CHECKED PULL UPS IT WAS DRY. BED ALARM ON.
--- NOTE | 2021-04-29 05:37 | NUR ---
ASSESSMENT COMPLETE. PT DENIES PAIN OR NAUSEA. NO REPORTS OF SOB. 3L/NC IN PLACE. SpO2 93%. WARM BLANKET PROVIDED. PT DENIES FURTHER NEEDS. BED ALARM FOR SAFETY.
--- NOTE | 2021-04-29 06:06 | NUR ---
bed alarming .PATIENT NEEDED TO USE THE BATHROOM. 1 PA/SBA USING WALKER. PATIENT IS BACK IN BED NOW. NO OTHER NEEDS AT THIS TIME. BED ALARM BACK ON. CALL LIGHT AND TABLE IN REACH.
--- NOTE | 2021-04-29 08:04 | NUR ---
PT RESTING WITH EYES CLOSED. STATES SHE IS NOT A MORNING PERSON. LUNGS MOSTLY CLEAR WITH SMALL FINE CRACKLES, CLEARED WITH COUGH. PT SATS 88-91 ON 3LNC. ADMINISTERED MORNING MED.
[2021-04-29] MEDS ORDERED: DEXAMETHASONE6 MG PO (08:33)
--- NOTE | 2021-04-29 11:45 | NUR ---
PT SITTING UP IN CHAIR READY FOR LUNCH. CALL LIGHT IN REACH.
--- NOTE | 2021-04-29 13:23 | NUR ---
PT SITTING UP IN CHAIR WITH EYES CLOSED. O2 IN PLACE AND CALL LIGHT ON LAP.
--- NOTE | 2021-04-29 14:09 | NUR ---
PATIENT IN BED RESTING WITH EYES CLOSED. PARTIAL VITALS PUT IN, MARIEL MEYERS SAID DO NOT WAKE PATIENT FOR BLOOD PRESSURE. CALL LIGHT IN REACH. NO FURTHER NEEDS AT THIS TIME.
--- NOTE | 2021-04-29 14:11 | NUR ---
CALLED TO SPEAK WITH DAUGHTER GURVINDER REGARDING DISCHARGE NEEDS. CASE MANAGEMENT ASSESSMENT COMPLTED, PLEASE SEE OTHER DOCUMENTATION. PATIENT DAUGHTER STATES PATIENT USES A WALKER AT HOME AND DOES HAVE HOME O2 AT NIGHT. PATIENT LIVES WITH HER GURPREET AND DAUGHTER GURVINDER. GURVINDER STATES THE PATIENT IS FORGETFUL AT TIMES, BUT DOES WELL. GURVINDER DOES NOT FEEL THEY NEED ANY FURTHER DME EQUIPMWNT AT THIS TIME. PER UPDATE FROM DR. DAVIES PATIENT TO DISCHARGE TOMORROW. GURVINDER STATES SHE WILL BE HERE AROUND 8 AM FOR DISCHARGE. PATIENT HAS HX OF PREVIOUS CVA, GURVINDER EXPRESSED SOME CONCERNEDS WITH THE PATIENT ONGOING APHASIA, BUT STATES SHE WILL SCHEDULE THE PATIENT A F/U WITH DR. HIGUERA ONCE DISCHARGED.
--- NOTE | 2021-04-29 16:03 | NUR ---
WOKE PT FOR AFTERNOON ASSESSMENT AND MEDS. PT UP TO RESTROOM WITH FWW SBA. FLUSHED CHEEKS AND CHILLY BUT AFEBRILE AND STATES THAT IS NORMAL FOR HER TO BE CHILLY. 3LNC IN PLACE 93%
--- NOTE | 2021-04-29 17:41 | NUR ---
PT GIVEN PHONE AND DINNER. DID NOT LIKE THE ENCHILADAS, TOO SPICY. ORDERED SOME PEACHES.
--- NOTE | 2021-04-29 19:12 | NUR ---
PATIENT UP TO BATHROOM AND BACK TO BED, SBA FWW. VITALS AND I&O'S CHARTED. CALL LIGHT IN REACH. NO FURTHER NEEDS AT THIS TIME.
--- NOTE | 2021-04-29 19:37 | NUR ---
REPORT RECEIVED FROM DAY SHIFT RN. PT LYING IN BED RESTING WITH EYES CLOSED. RESPIRATIONS EVEN. BED ALARM FOR SAFETY. CALL LIGHT IN REACH.
--- NOTE | 2021-04-29 20:45 | NUR ---
EVENING ASSESSMENT COMPLETE. SCHEDULED MEDS ADMINISTERED PER EMAR WITH APPLE SAUCE. PT DENIES PAIN OR NAUSEA. NO COMPLAINTS OF SOB. 2L/NC IN PLACE. SpO2 94%. RESPIRATIONS EVEN. ASSISTED PT TO REPOSITION IN BED. FRESH WATER PROVIDED. PT DENIES QUESTIONS OR CONCERNS. CALL LIGHT IN REACH. BED ALARM FOR SAFETY.
--- NOTE | 2021-04-29 23:21 | NUR ---
PT RESTING IN BED WITH EYES CLOSED. RESPIRATIONS EVEN. CALL LIGHT IN REACH. BED ALARM ON.
--- NOTE | 2021-04-30 01:13 | NUR ---
IN ROOM TO ASSIST PT TO REPOSITION IN BED. SpO2 86-89% ON 2L/NC AT REST. OXYGEN TITRATED TO 3L/NC. SpO2 90-91%. PT DENIES FURTHER NEEDS. CALL LIGHT IN REACH. BED ALARM FOR SAFETY.
--- NOTE | 2021-04-30 03:46 | NUR ---
PT RESTING IN BED WITH EYES CLOSED. RESPIRATIONS EVEN. SpO2 91% WITH 3L/NC.
--- NOTE | 2021-04-30 06:42 | NUR ---
VS AND I&O COMPLETE. MORNING LABS DRAWN PER PROTOCOL. PT UP TO BR WITH SBA AND FWW TO VOID 300 ML YELLOW URINE. PT ABLE TO DO OWN FRANCISCA CARE. AT SINK TO WASH HANDS. BACK TO BED, ROSITA WELL. DENIES SOB. 3L/NC IN PLACE SpO2 91%. FRESH WATER PROVIDED. PT DENIES FURTHER NEEDS. CALL LIGHT IN REACH. BED ALARM FOR SAFETY.
--- NOTE | 2021-04-30 06:56 | NUR ---
SBA TO THE BATHROOM AND BACK TO BED. PATIENT HAD LOOSE BOWEL MOVEMENT. BED ALARM ON. CALL LIGHT AND TABLE IN REACH.
--- NOTE | 2021-04-30 08:49 | NUR ---
REPORT RECEIVED FROM NIGHT RN AND PT. CARE RESUMED. PT. IS ALERT AND ORIENTED TO ALL. SHE IS ON 2L NC AND 02 SAT IS 94%. SHE DENIES PAIN OR SOB. DISCUSSSED DISCHARGE INSTRUCTIONS AND ALL QUESTIONS ANSWERED. IV REMOVED WITH CATH INTACT WNL. ATENOLOL HELD DUE TO HR OF 52. DRIVE IN THEATER ATTENDANT IN THE ROOM TO ASSIST PT. WITH DRESSING.
--- NOTE | 2021-04-30 09:16 | NUR ---
PT. LEFT ON 2L O2 WITH ALL BELONGINGS VIA WHEELCHAIR WITH INFORMATION TECHNOLOGY ADMINISTRATOR.
== END 2021-04-30 08:25 | disposition home or self-care (01) | DRG 177 ==
LOC: ED 19:01 → MS 23:17
PROVIDERS: ADMIT Student in an Organized Health Care Education/Training Program; ATTEND Student in an Organized Health Care Education/Training Program
PROC: 8E0ZXY6 Isolation (ICD-10-PCS; principal; 2021-04-25)
PROC: 3E0333Z Introduction of Anti-inflammatory into Peripheral Vein, Percutaneous Approach (ICD-10-PCS; 2021-04-25)
DX: U07.1 COVID-19 (principal); J96.01 Acute respiratory failure with hypoxia; J12.82 Pneumonia due to coronavirus disease 2019; N17.9 Acute kidney failure, unspecified; Z66 Do not resuscitate; G89.4 Chronic pain syndrome; G40.909 Epilepsy, unspecified, not intractable, without status epilepticus; F03.90 Unspecified dementia, unspecified severity, without behavioral disturbance, psychotic disturbance, mood disturbance, and anxiety; I12.9 Hypertensive chronic kidney disease with stage 1 through stage 4 chronic kidney disease, or unspecified chronic kidney disease; N18.9 Chronic kidney disease, unspecified; Z53.20 Procedure and treatment not carried out because of patient's decision for unspecified reasons; Z86.73 Personal history of transient ischemic attack (TIA), and cerebral infarction without residual deficits; Z87.891 Personal history of nicotine dependence; Z88.2 Allergy status to sulfonamides; Z88.8 Allergy status to other drugs, medicaments and biological substances; Z79.01 Long term (current) use of anticoagulants; Z79.899 Other long term (current) drug therapy; Z99.81 Dependence on supplemental oxygen
CPT/HCPCS: 36415; 70450; 71045; 80053; 82553; 82803; 83735; 83880; 84484; 85025; 85379; 85610; 86140; 93005; 93010; 94640; 94668; 94760; 94761; 94762; 97110; 97116; 97162; 97165; 99285-25; C9803; J1100; J1650; J7121; J8540; U0003

== ENCOUNTER 2021-05-05 06:40 | Inpatient (IN) | payer MEDICARE, OTHER ==
[~2021-05-05] VITALS: Ht 170.2 cm; Wt 71.5 kg
[~2021-05-05 06:40] MED LIST changes: +DEXAMETHASONE6 MG PO
--- OUTSIDE RECORDS SUMMARY | 2021-05-05 06:48 | XMS ---
PreManage Notification: RASHEL RING Security Electric Serviceman Events No recent Security Events currently on file CRITERIA MET - [facility] - 2 Visits in 30 Days CARE PROVIDERS [facility] 09/11/2020-Current PHONE: Unknown Kanchan has no Care Guidelines for this patient. Subha VISIT COUNT (12 MO.) 4 [facility] TOTAL 4 NOTE: Visits indicate total known visits. ED/UCC VISIT TRACKING (12 MO.) 05/05/2021 06:40 [facility] TYPE: Emergency COMPLAINT: - WEAKNESS 04/25/2021 19:01 [facility] TYPE: Emergency COMPLAINT: - WEAKNESS 09/10/2020 11:13 [facility] TYPE: Emergency COMPLAINT: - POSS STROKE 08/27/2020 10:55 [facility] TYPE: Emergency COMPLAINT: - SOB INPATIENT VISIT TRACKING (12 MO.) 04/25/2021 23:[address] [facility] TYPE: Medical Surgical COMPLAINT: - HYPOXEMIC RESPIRATORY FAILURE DUE TO COVID DIAGNOSES: - Acute respiratory failure with hypoxia - Acute respiratory failure with hypoxia - Allergy status to sulfonamides - Unspecified dementia without behavioral disturbance - Acute kidney failure, unspecified - Personal history of nicotine dependence - Chronic kidney disease, unspecified - Other [place] [facility]current[facility] drug therapy - Personal history of nicotine dependence - Allergy status to other drugs, medicaments and biological substances - Unspecified dementia without behavioral disturbance - Allergy status to other drugs, medicaments and biological substances - Personal history of transient ischemic attack (TIA), and cerebral infarction without residual deficits - Epilepsy, unspecified, not intractable, without status epilepticus - COVID-19 - Procedure and treatment not carried out because of patient's decision for unspecified reasons - Personal history of transient ischemic attack (TIA), and cerebral infarction without residual deficits - Chronic kidney disease, unspecified - Chronic pain syndrome - Do not resuscitate - Allergy status to sulfonamides - local intermodal truck driver (current) use of anticoagulants - Hypertensive chronic kidney disease with stage 1 through stage 4 chronic kidney disease, or unspecified chronic kidney disease - Do not resuscitate - Procedure and treatment not carried out because of patient's decision for unspecified reasons - Acute kidney failure, unspecified - Hypertensive chronic kidney disease with stage 1 through stage 4 chronic kidney disease, or unspecified chronic kidney disease - Dependence on supplemental oxygen - Chronic pain syndrome - Other terminal block assembler (current) drug therapy - Epilepsy, unspecified, not intractable, without status epilepticus - Dependence on supplemental oxygen - local intermodal truck driver (current) use of anticoagulants 09/10/2020 11:14 [facility] TYPE: Observation COMPLAINT: - CVA DIAGNOSES: - Cerebral infarction, unspecified - Essential (primary) hypertension - Hypocalcemia - NIHSS score 10 - Personal history of nicotine dependence - Hemiplegia, unspecified affecting right dominant side - Other cerebral infarction - Hypomagnesemia - Chronic obstructive pulmonary disease, unspecified - Allergy status to sulfonamides - Aphasia following cerebral infarction - Cerebral infarction, unspecified - Hypokalemia - Allergy status to other drugs, medicaments and biological substances - [facility] (current) use of anticoagulants - Other disorders of orbit - Dependence on supplemental oxygen 08/27/2020 16:16 [facility] TYPE: Medical Surgical COMPLAINT: - PNEUMONIA DIAGNOSES: - Viral pneumonia, unspecified - Chronic obstructive pulmonary disease with (acute) lower respiratory infection - Aphasia following cerebral infarction - Pneumonia due to other streptococci - [facility] (current) use of anticoagulants - Adverse effect of loop [high-ceiling] diuretics, initial encounter - Personal history of nicotine dependence - Hypomagnesemia - Pneumonia, unspecified organism - Unspecified systolic (congestive) heart failure - Hypokalemia - Allergy status to sulfonamides - Hypertensive heart disease with heart failure - Other [place] [facility] (current) drug therapy - Other disorder of circulatory system - [facility] (current) use of opiate analgesic - Abnormal coagulation profile - Allergy status to other drugs, medicaments and biological substances - Chronic pain syndrome [email or web address]
--- NOTE | 2021-05-05 09:42 | NUR ---
PATIENT ARRIVES TO CCU AT 0925. PT MOVED FROM ER STRETCHER TO CCU BED X3 PERSON ASSIST. PT ORIENTED TO SELF AND PLACE ONLY, NOT YEAR OR MONTH, OR EVENT. PT BREATHING FAST, CURRENTLY 28. PT ARRIVES ON 6 L OXYMASK. FINGERS COLD AND HARD TO GET ACCURATE SP02 - STICKER PROBE PLACED AND 96% ON 6 L, SO TITRATED DOWN TO 4 L. PT HAS SORE BELOW NOSE WHERE LIKELY OXYGEN TUBING HAS BEEN LAYING. PT DENIES PAIN. PT IS DROWSY AND DRIFTS BACK TO SLEEP EASILY. ORIENTED TO ROOM AND CALL LIGHT. PT WAS JUST D/C FROM [facility] ON 04/25/21 FOR COVID+. PT NOT RETESTED TODAY. DR. HERRERA TO SEE PATIENT. PT RECEIVING IV ABX FOR UTI. CONTINUE TO MONITOR CLOSELY.
--- NOTE | 2021-05-05 09:57 | NUR ---
DR. HERRERA IN TO SEE PATIENT. PATIENT UNABLE TO ANSWER VERY MANY QUESTIONS. WILL CONTINUE TO MONITOR.
--- NOTE | 2021-05-05 11:00 | NUR ---
INIATED IV TO RIGHT WRIST, STARTED FLUID BOLUS PER MAR. PATIENT APPEARS CONFUSED, NEEDING ORIENTED TO PLACE, TIME AND REASON FOR ADMISSION. AFTER BEING ORIENTED PATIENT WILL FOLLOW DIRECTIONS AND VERBAL CUES. PATIENT RESTING ON SIDE, BREATHING EASY, UNLABORED. VS WNL.
--- NOTE | 2021-05-05 12:12 | NUR ---
500 BOLUS COMPLETE, IV FLUIDS NOW ADMINISTERING AT MAINTENANCE RATE. LAB IN ROOM NOW FOR BLOOD DRAW, TYPE AND SCREEN. CONTINUE TO RE-ORIENT PATIENT TO PLACE AND TIME, PROVIDING REASSURANCE. BED ALARM ON. NO OTHER NEEDS AT THIS TIME.
--- NOTE | 2021-05-05 13:36 | NUR ---
PATIENT USED CALL LIGHT AND REQUESTED HELP UP TO BSC. STBY ASSIST, PATIENT TOLERATED ACIVITY WELL. VOIDED 100 ML OF BLACK LIQUID STOOL. PATIENT BACK TO BED, CALL LIGHT IN REACH, BED ALARM ON. NO OTHER NEEDS AT THIS TIME.
--- NOTE | 2021-05-05 16:47 | NUR ---
MIDLINE INSERTION NOTE: ASKED BY DR. HERRERA TO EVALUATE PATIENT FOR A MIDLINE IV SITE. PT HAS VERY POOR IV ACCESS AND HAS BEEN POKED MULTIPLE TIMES TODAY. PT HERE FOR A GI BLEED, COVID+ AND A UTI. PATIENT ABLE TO PROVIDE VERBAL CONSENT FOR THE MIDLINE AND DISCUSSED RISKS AND BENEFITS WITH HER. PT AGREEABLE AND WANTING TO PROCEED WITH MIDLINE INSERTION. PATIENT'S RIGHT ARM EVALUATED FIRST USING SITE RITE U/S AND THE CEPHALIC AND BASILIC VEINS BOTH EASILY IDENTIFIED AND GOOD CANDIDATES. AFTER NUMBING HER SKIN WITH LIDOCAINE 1%, PATIENT'S ARM WAS STERILLY PREPPED FOR STERILE PROCEDURE. PT'S CEPHALIC VEIN WAS ATTEMPTED FIRST WITH A 20 G MIDLINE CATHETER, BUT UNFORTUNATELY WAS NOT ABLE TO VISUALIZE CATHETER TIP WELL AND NOT ABLE TO ADVANCE CATHETER INTO VEIN SUCCESSFULLY. THIS SITE WAS ABANDONED AND THEN THE BASILIC WAS PURSUED. THE SKIN WAS AGAIN STERILLY PREPPED AND NUMBED WITH LIDOCAINE. AN 18 G MIDLINE 10 CM CATHETER WAS INSERTED W/O PROBLEM INTO THE VEIN. TIP OF CATHETER WAS VISUALIZED AND ADVANCED IN EASILY, FOLLOWED BY CATHETER ITSELF. EDUCATION MATERIAL WAS LEFT INSIDE PATIENT'S CHART AND PATIENT WAS ENCOURAGED TO ASK QUESTIONS REGARDING HER MIDLINE. PATIENT PROVIDED WITH A WARM BLANKET. OVERALL PATIENT TOLERATED PROCEDURE WELL.
--- NOTE | 2021-05-05 22:00 | NUR ---
PT ASLEEP IN BED, RESTING COMFORTABLY, HEAD TO TOE ASSESSMENT COMPLETED, MEDICAITONS REVIEWED, LABS REVIEWED, PT DOES HAVE POOR PERFUSION CAUSING PROBLEMS READING THE SP02 PROBE ON HER FINGER, PEDIACTRIC PROBE ATTACHED TO EARLOBE INSTEAD, WAVEFORM BETTER HOWEVER STILL VERY DEPRESSED, SP02 READING IN AND OUT, PT OXYGEN INCREASED TO 4 LPM VIA NASAL CANNULA, AVERAGE READING 90%, AFTER O2 INCREASE, AVERAGE READING 95%
--- NOTE | 2021-05-06 01:35 | NUR ---
PT REQUIRING INCREASED OXYGEN DEMANDS, NASAL CANNULA WAS INCREASED FROM 3 LPM TO 4 LPM, TO 6 LPM, TO CHANGING OVER TO AN OXYMASK AT 10 LPM, CURRENT SP02 96% ON 10 LPM VIA OXYMASK
--- NOTE | 2021-05-06 01:42 | NUR ---
NOTIFIED DR HERRERA OF INCREASED OXYGEN DEMANDS, HE STATED TO HOLD IV FLUIDS AND ORDER A CHEST XRAY FOR THE MORNING. WAS ALSO NOTIFIED OF INCREASED DYSPNEA WITH ACTIVITY SUCH USING THE BEDSIDE COMMODE WELL INCREASED RECOVERY TIME
--- NOTE | 2021-05-06 06:25 | NUR ---
PT RESTING IN BED, OXYMASK ON AT 10 LPM, PT LAYING ON SIDE, SPO2 MID 90S, PT USING BEDPAN WHEN NEEDING TO VOID, LABS REVIEWED, WILL UPDATE DAYSHIFT ON DOWNWARD TREND ON H/H WELL INCREASED OXYGEN DEMANDS/DECREASED ACTIVITY TOLERANCE
--- NOTE | 2021-05-06 09:00 | NUR ---
2PA TO PLACE PATIENT ON BEDPAN. PATIENT UNABLE TO VOID. FRANCISCA CARE PROVIDED AND PATIENT REPOSITIONED. SEVERAL BLANKETS REMOVED PER PATIENT REQUEST. CALL LIGHT IN EASY REACH
--- NOTE | 2021-05-06 09:00 | NUR ---
In with PARKING CASHIER for bedpan assistance.
--- NOTE | 2021-05-06 09:11 | NUR ---
PATIENT AWAKE, ALERT AND ORIENTED X3. PATIENT'S VITAL SIGNS STABLE. PATIENT'S OXYGEN SATURATION IS 96% ON 10L OXYMASK, DECREASED TO 8L AT THIS TIME. PATIENT'S RESPIRATIONS 26/MIN. RESPIRATIONS ARE NOTED TO BE SHALLOW. LUNG SOUNDS ARE CLEAR/DIMINISHED IN UPPER LOBES, LOWER LOBES COARSE. PATIENT NOTED TO BE WEAK IN UPPER/LOWER EXT'S. POOR ACTIVITY TOLERANCE NOTED. TWO PERSON ASSIST USING BEDPAN. PATIENT CALLS STAFF APPROPRIATELY. REPOSITIONED AT THIS TIME. BED ALARM INTACT. CLOSE TO RN STATION FOR FREQUENT MONITORING.
--- NOTE | 2021-05-06 10:50 | NUR ---
Dr. Boyd notified this RN that patient had decreased sensorium with his assessment. This RN to check on patient.
--- NOTE | 2021-05-06 10:57 | NUR ---
IV FLUIDS RESTARTED PER DR. HERRERA'S VERBAL ORDER.
--- NOTE | 2021-05-06 10:58 | NUR ---
DECREASED SENSORIUM NOTED. PATIENT OPENS HER EYES TO VERBAL STIMULI, SPEECH SLURRED. PATIENT MOVES HEAD SIDE TO SIDE AND UP AND DOWN WHEN I ASK HER QUESTIONS. REPOSITIONED PT, ORAL CARE PROVIDED. OXYGEN NOW 6L PER OXYMASK. VGB ORDERED BY DR. HERRERA. WILL CONTINUE TO MONITOR.
--- NOTE | 2021-05-06 11:50 | NUR ---
REPORT PROVIDED TO MARIEL MEYERS. PATIENT LEFT CCU TO MEDICAL FLOOR.
--- NOTE | 2021-05-06 12:02 | NUR ---
REPORT RECIEVED FROM MARIEL ANDRES. ASSISTED TO TRANSFER PT TO RM 117. PT DID NOT RESPOND TO ANY QUESTIONS OR TALKING OTHER THAN TRACKING WITH EYES. MOANS OCCASIONALLY BUT SHOWS NO OTHER SIGNS OF DISCOMFORT. REPOSITIONED IN BED WITH PILLOWS. VS STABLE. 6L OXY MASK IN PLACE.
--- NOTE | 2021-05-06 12:52 | NUR ---
PT RESTING IN BED WITH EYES CLOSED. RR 22. CALL LIGHT ON LAP.
--- NOTE | 2021-05-06 13:31 | NUR ---
PATIENT IN BED RESTING WITH EYES CLOSED. VITALS CHARTED. CALL LIGHT IN REACH. BED ALARM ON. NO FURTHER NEEDS AT THIS TIME.
--- NOTE | 2021-05-06 14:15 | NUR ---
PT RESTING WITH EYES CLOSED. ROLLED TO OTHER SIDE AND PROPPED WITH PILLOW. PT OPENED EYES AND LOOKED AROUND BUT DID NOT SPEAK. ASKED IF SHE WAS IN PAIN, NO RESPONSE.
--- NOTE | 2021-05-06 17:01 | NUR ---
WITH MARIEL MCKAY'S ASSISTANCE. CHANGED PT AND BEDDING. PT HAD SMALL DARK BM SMEAR AND LARGE QTY URINE. PT DID NOT SPEAK BUT MOAN AND GRUMBLED SOUNDS WHILE WATCHING. PT LUNG SOUND MORE JUNKY WITH COARSE UPPERS, DIM BASES. ARMS FLOATED WITH PILLOWS.
--- NOTE | 2021-05-06 18:33 | NUR ---
NADIRA LABS AND ALERTED ARIANNA RT TO CHANGE. ARIANNA IN PUTTING PT ON BIPAP. PT TRACKING MOVEMENTS WITH EYES AND MOANING OCCASIONALLY.
--- NOTE | 2021-05-06 19:10 | NUR ---
PATIENT OFF FLOOR TO CT. GAGAN RN WITH PATIENT.
--- NOTE | 2021-05-06 19:47 | NUR ---
REQUESTED TO ACCOMPANY pt TO CT. pt ON BiPAP 03/03 WITH FiO2 OF 45% pt MOVED TO 5L O2, SATS REMAINED LOW 90'S. pt OPENED EYES TO PHYSICAL STIMULATION. NO VERBAL RESPONSE. MOVED FROM BED TO STRETCHER, pt MOVED LEFT ARM A LITTLE, NO OTHER MOVEMENT. CT COMPLETED, pt TRANSFERRED BACK TO MED/SURG. SATS ON 5L WHEN ARRIVED IN ROOM WAS 72%, IMMEDIATELY PLACED BACK ON BiPAP. pt RECOVERED QUICKLY. SATS 93%. CALL LIGHT WITHIN REACH. BED ALARM ON. PRIMARY RN UPDATED.
--- NOTE | 2021-05-06 20:54 | NUR ---
PATIENT ASSESMENT COMPLETED. PATIENT REPOSITIONED IN BED. PATIENT DOES NOT MOVE RIGHT ARM OR LEG. VITALS TAKEN AND RECORDED. PATIENT ATTEND CHANGE SHE WAS INCONTINENT OF URINE. PATIENTS IV INFUSING INTO RIGHT PICC. PICC HAS BLOOD RETURN. SCHEDULED MEDICATIONS GIVEN PER ORDER. PATIENT TAKEN OFF BIPAP AND DUODERM PLACED ON NOSE AND CHEEKS. PATIENT TOLERATED ACTIVITY WELL. PATIENT REACH FOR GAGAN RN WITH HER LEFT HAND. PATIENT HAS SCDS IN PLACE. HEEL PROTECTORS IN PLACE. CALL LIGHT IN REACH. ORAL CARE COMPLETED. PATIENT PLACED ON TELE #4. PER ORDER. MD ON FLOOR AND UPDATED ON PATIENTS STATUS.
--- NOTE | 2021-05-06 21:18 | NUR ---
VERBAL ORDER FROM MD TO ORDER CTA HEAD AND NECK NOW. ORDER REPEATED BACK TO VERIFY AND PLACED.
--- NOTE | 2021-05-06 21:30 | NUR ---
STROKE TEAM ACTIVATED. pt OFF FLOOR FOR CTA WITH MARIEL FARAH AND BON JANSEN ASSIST.
--- NOTE | 2021-05-06 22:06 | NUR ---
NIH STROKE SCALE COMPLETED WITH GAGAN FLOYD AND IS NOTED TO BE 21. PATIENT DOES NOT RESPOND IN HER RIGHT SIDE TO ANY NOXIOUS STIMULI. PATIENTS BS OBTAINED AND IT IS 68. BS REPORTED TO MED. NEW ORDERS TO BE PLACED BY MD. GAGAN FLOYD IN TO ADMINISTER PRN MEDICATION FOR LOW BS. DAMIAN AT BEDSIDE @ [id number]
--- NOTE | 2021-05-06 22:13 | NUR ---
MD IN TO ASSES PATIENT. PATIENT DOES HAVE RESISTANCE TO MD PUSHING AND PULLING ON HER LEG AND ARM ON RIGHT SIDE. NO RESPONSE ON RIGHT SIDE OF FACE.
--- NOTE | 2021-05-06 22:27 | NUR ---
PATIENTS BS CHECKED AGAIN PER PROTOCOL AND IS 101. NEW FLUIDS INFUSING PER ORDER. PATIENT PLACED BACK IN BIPAP BY GAGAN FLOYD. PATIENT IS RESTING WITH EYES CLOSED, RR 24. OXYGEN SATURATION IS 99%. BED ALARM ON FOR SAFETY. CALL LIGHT IN REACH.
--- NOTE | 2021-05-06 23:15 | NUR ---
DR SALGADO CALLS TO NOTIFY THAT STROKE ROBOT NOT NEEDED HE HAS CONSULTED WITH NEUROLOGIST ON PHONE.
--- NOTE | 2021-05-06 23:31 | NUR ---
STROKE ROBOT IN ROOM PER TERELL RUFFLING MACHINE OPERATOR. WHILE AWAITING CONSULT, RUFFLING MACHINE OPERATOR RETURNED TO ROOM AND CANCELED CONSULT. PATIENT REPOSITIONED AND PLACED BACK ON BIPAP. PATIENT OPENING EYES AND LOOKING AROUND. ONLY MOANS NOTED. NO RECOGNIZABLE SPEECH NOTED.
--- NOTE | 2021-05-07 00:23 | NUR ---
PATIENT IS RESTING IN BED ON BIPAP, RR 24. PATIENT REPOSITIONED. PATIENT APPEARS TO BE IN NO DISTRESS. PATIENTS IV INFUSING PER ORDER. PATIENTS CALL LIGHT IN REACH. BED ALARM ON FOR SAFETY.
--- NOTE | 2021-05-07 02:36 | NUR ---
PATIENTS ATTEND CHANGED. PATIENT INCONT OF URINE. PATIENT REPOSITIONED IN BED. VITALS TAKEN AND RECORDED. INTAKE AND OUTPUT RECORDED. IV INFUSING PER ORDER. PATIENTS BIPAP REMOVED TO COMPLETE ORAL CARE. WHEN ASKING PATIENT IS SHE IS HAVING PAIN. PATIENT DOES NOT ANSWER ANY QUESTIONS AND ONLY LOOKS AROUND. PATIENT PLACED BACK ON BIPAP. PATIENT APPEARS COMFORTABLE AND SHOWS NO SIGNS OR SYMPTOMS OF PAIN. CALL LIGHT IN REACH. BED ALARM ON FOR SAFETY.
--- NOTE | 2021-05-07 04:42 | NUR ---
PATIENT REPOSITIONED IN BED. PATIENT REMAINS ON BIPAP. PATIENT OPENED EYES TO HER NAME. ORAL CARE COMPLETED. PATIENT HAS NO VERBAL RESPONSE TO QUESTIONING. PATIENTS CALL LIGHT IN REACH. BED ALARM ON FOR SAFETY.
--- NOTE | 2021-05-07 05:42 | NUR ---
PATIENT REPOSITIONED IN BED. PATIENT INCONTINENT OF URINE. ATTEND CHANGED AND FRANCISCA CARE COMPLETED. PATIENT TAKEN OFF OF BIPAP AND PLACED ONTO 13L VIA OXYMASK, AND OXYGEN SATURATION IS WNL. DURING ORAL CARE PATIENT WAS SUCKING ON SPONGE AND BIT DOWN ON YOUNKER DURING SUCTION. PATIENTS VITALS TAKEN AND RECORDED. INTAKE AND OUTPUT RECORDED. IV INFUSING PER ORDER. PATIENT APPEARS MORE ALERT BUT DOES NOT VERBALLY RESPOND TO QUESTIONING. PATIENT ONLY MOANS. RIGHT SIDE CONTINUES TO NOT MOVE WHEN STIMULI IS APPLIED. PATIENTS RIGHT HAND IS SWOLLEN, ELEVATED ON A PILLOW. PATIENT CONTINUES TO WEAR SCDS AND HEEL PROTECTORS. NO FURTHER NEEDS NOTED. CALL LIGHT IN REACH AND BED ALARM ON FOR SAFETY.
--- NOTE | 2021-05-07 06:54 | NUR ---
PATIENT REPOSITONED IN BED. PATIENT REMAINS ON 13L VIA OXY MASK. PATIENTS CALL LIGHT IN REACH. BED ALARM ON FOR SAFETY.
--- NOTE | 2021-05-07 08:55 | NUR ---
THIS RN IN PTS ROOM TO DO PTS MORNING ASSESSMENT. PTS NIH INCREASED THIS AM ON ASSESSMENT. PT NOT AWAKE OR ALERT THIS AM. PT ON OXY MASK AND CPOX. PT TOLERATING WELL AND DOES NOT APPEAR TO BE IN PAIN THIS AM
--- NOTE | 2021-05-07 09:30 | NUR ---
Called and spoke with daughter, Bridgette. She states she will be in shortly.
--- NOTE | 2021-05-07 09:30 | NUR ---
THIS RN IN PTS ROOM TO GIVE PT AM METOPROLOL. PT MORE AWAKE AND ALERT. NOT ABLE TO ANSWER QUESTIONS STILL
--- NOTE | 2021-05-07 10:50 | NUR ---
Spoke with daughter, Bridgette. She is in room with her dad and they are discussing DNE/DNI and both agree this is patients wishes. When pts sister arrives they will discuss comfort care for pt. Daughter taking to [facility]U waiting room as she is very tearful and wanting to call her sister in private.
--- NOTE | 2021-05-07 13:00 | NUR ---
THIS RN IN PTS ROOM. PT HAD UNDRESSED HERSELF. LUIGI RN IN PTS ROOM TO CHANGE PT WITH THIS RN. PT REPOSITIONED. PT MORE ALERT AT THIS TIME BUT NOT ABLE TO ANSWER QUESTIONS.
--- NOTE | 2021-05-07 14:00 | NUR ---
THIS RN IN PTS ROOM WITH LOADING SUPERVISOR'Rita DO. PT REPOSITIONED THIS RN ATTEMPTED TO SUCTION, PT DID NOT TOLERATE. PT APPEARS MORE COMFORTABLE AT THIS TIME.
--- NOTE | 2021-05-07 14:50 | NUR ---
PATIENT IN BED RESTING AT THIS TIME. VITALS AND I&O'S CHARTED. RN IN ROOM TO HELP REPOSITION PATIENT. REPOSITIONED ONTO LEFT SIDE WITH PILLOWS UNDERRIGHT SIDE. CALL LIGHT IN REACH. BED ALARM ON.
--- NOTE | 2021-05-07 16:00 | NUR ---
Spoke with daughter about hospice as received a referral for hospice from Dr Durán. Daughter wanting to know if hospice would be in the hospital or at home. She feels she may need to leave with her dad, who is also hospitalized for covid and has been place on a vent. He is transfering to [facility]. Updated pt she will more than likely not be able to visit dad in the hospital. We then discussed hospice and they do not see pts in the hospital. She has no concerns to care for mom on hospice as she has been caring for her for 4 years. Juanito from [facility] present during conversation. Discussed I will send a referral to [facility] as this is Bridgette's preference. Their office closes at 4pm and I will not hear from them until tomorrow.
--- NOTE | 2021-05-07 17:52 | NUR ---
IN TO CHECK ON PATIENT. PATIENT REPOSITIONED IN BED. PATIENTS BREATHING IS MORE LABORED, RN NOTIFIED. RN REYES IN TO OBSERVE PATIENT. CALL LIGHT IN REACH.
--- NOTE | 2021-05-07 18:00 | NUR ---
THIS RN IN PTS ROOM TO GIVE PT 5MG MORPHINE ORALLY. THIS RN PLACED SCOP PATCH ON PTS LEFT EAR. THIS RN ALSO PROVIDED PT WITH ATROPINE. PTS DAUGHTERS IN ROOM- EDUCATED ABOUT MEDS
--- NOTE | 2021-05-07 18:00 | NUR ---
Face sheet, DNR status, Demo sheet, progress notes, and H&P faxed to Padmini at Hospice.
--- NOTE | 2021-05-07 19:53 | NUR ---
RECEIVED REPORT FROM DAY SHIFT RN. PATIENT IS RESTING IN BED. RR 22-25. CALL LIGHT IN REACH. BED ALARM ON FOR SAFETY.
--- NOTE | 2021-05-07 20:33 | NUR ---
PATIENT REPOSITINED. PATIENTS RR8-10. OXYGEN SATURATION 40%. PATEINT NOT RESPONSIVE TO NAME. THIS RN TO REMAINS IN ROOM. HAL FLOYD TO NOTIFY FAMILY
--- NOTE | 2021-05-07 20:40 | NUR ---
PATIENT GIVEN PRN MORPHINE. PATIENT APPEARED UNCOMFORTABLE. PATIENT MOANING OUT. THIS RN AT BEDSIDE.
--- NOTE | 2021-05-07 20:40 | NUR ---
ASSISTED PRIMARY RN MERARY TO CHANGE pt, INCONTINENT OF URINE. ATTENDS CHANGED. REPOSITIONED IN BED WITH PILLOWS UNDER EACH HIP. SPO2 SPOT CHECKED 41-42% AFTER TURNING. FAMILY NOTIFIED OF pt STATUS. ON WAY IN TO HOSPITAL.
--- NOTE | 2021-05-07 21:30 | NUR ---
FAMILY AT BEDSIDE. PATIENTS RR 10-12. BREATHING IS EVEN AND UNLABORED. NO NEEDS NOTED. CALL LIGHT IN REACH.
--- NOTE | 2021-05-07 22:30 | NUR ---
FAMILY AT BEDSIDE NO NEEDS NOTED. RR 18-22
--- NOTE | 2021-05-07 23:40 | NUR ---
FAMILY AT BEDSIDE. WATER PROVIDED. RR 22-24
--- NOTE | 2021-05-08 00:53 | NUR ---
PATIENT INCONTINENT OF URINE. FRANCISCA CARE COMPLETED. PATIENT REPOSITIONEDIN HER RIGHT SIDE. ORAL CARE COMPLETED. PATIENT HAVE APNEC PERIODS. FAMILY AT BEDSIDE. COUCH MADE INTO BED FOR DAUGHTER. FAMILY PRESENT IN ROOM. NO NEEDS NOTED. DAUGHTERS BOTH AGREE THEIR MOM APPEARS COMFORTABLE.
--- NOTE | 2021-05-08 02:31 | NUR ---
PATIENT IS RESTING IN BED WITH EYES CLOSED, RR 22-24. DAUGHTER ASLEEP IN CHAIR AT THE BEDSIDE. CALL LIGHT IN REACH.
--- NOTE | 2021-05-08 05:31 | NUR ---
PATIENTS ATTEND CHANGED. PATIENT REPOSITIONED IN BED. PATIENT DOES NOT OPEN EYES OR RESPOND TO STIMULI. RR 24-26, HR 132. PRN MEDICATION GIVEN PER ORDER. DAUGHTERS ARE BOTH OUT OF THE ROOM AT THIS TIME. CALL LIGHT IN REACH.
--- NOTE | 2021-05-08 07:34 | NUR ---
this rn received report from hipolito ledbetter. both daughters at bedside.
--- NOTE | 2021-05-08 08:11 | NUR ---
this rn in pts room to give 20mg oral morphine at this time. both daughters at bedside. pt appears to have labored breathing and after med given pt has multiple apnic perionds of 10-30secs.
--- NOTE | 2021-05-08 09:50 | NUR ---
this rn in pts room to give 20mg oral morphine. pt appears to have increased labored breathing. pts daughter lazara in room and states that pt looks comfortable otherwise.
--- NOTE | 2021-05-08 11:30 | NUR ---
this rn in pts room and noted that pts respirations were less than 10. this rn had [facility] rn notify pts daughter jenny that pt was getting close. this rn took a phone call from pts other daughter lazara that she was not going to be back for an hour. this rn discussed with her that pt was close to passing. this rn had intened to give pt morphine, pts family asked for this rn to hold off.
--- NOTE | 2021-05-08 11:50 | NUR ---
pts daughter lazara in room. she then came out and stated that pt did not appear to be breathing. this rn in pts room and did appear to have restpirations. [id number] this rn listened with a stethascope- no heart beat noted. notified. casting house worker notified. anyi notified.
--- NOTE | 2021-05-08 12:20 | NUR ---
this rn and miguel ángel rn wasted 20mg morphine.
--- NOTE | 2021-05-08 12:55 | NUR ---
THIS RN IN PTS ROOM TO ASSIST PTS DAUGHTER GURVINDER TO TAKE OFF JEWERY. GURVINDER ABLE TO GET RINGS AND A NECKLACE OFF AND PLACED IN A CLEAR DENTURES CUP TO TAKE HOME.
--- NOTE | 2021-05-08 14:09 | NUR ---
I WAS NOTIFIED BY MARIEL CHAMBERS THAT PT HAS PASSED. DR SALGADO IN WITH DAUGHTER LISA GAVE THEM A MOMENT.OTHER DAUGHTER GURVINDER ARRIVED, WENT IN WITH BOTH. GAVE THEM CONDOLENCES AND SYMPATHY. GURVINDER ASKED WHAT TO DO NEXT-[facility] IS PT'S CHOICE AND THEY HAE PLOTS AT [facility]. HAD PRAYERRN STAFF ABLE TO GET RING OFF PT WHICH GURVINDER TOOK HOME ALONG WITH A NECKLACE. [facility] NOTIFIED, ASSISTED STFF FROM [employer]. EXCHANGED PAPERWORK AND WILL FOLLOW
== END 2021-05-08 11:55 | DRG 177 ==
LOC: ED 06:40 → MS 06:41 → CCU 06:41 → MS 05-06 12:10
PROVIDERS: ADMIT Internal Medicine; ATTEND Internal Medicine
PROC: 05HB33Z Insertion of Infusion Device into Right Basilic Vein, Percutaneous Approach (ICD-10-PCS; principal; 2021-05-05 15:30)
DX: U07.1 COVID-19 (principal); J12.82 Pneumonia due to coronavirus disease 2019; J96.01 Acute respiratory failure with hypoxia; J15.9 Unspecified bacterial pneumonia; G93.41 Metabolic encephalopathy; I63.9 Cerebral infarction, unspecified; N17.9 Acute kidney failure, unspecified; D68.9 Coagulation defect, unspecified; G81.94 Hemiplegia, unspecified affecting left nondominant side; K92.2 Gastrointestinal hemorrhage, unspecified; I10 Essential (primary) hypertension; E78.5 Hyperlipidemia, unspecified; Z51.5 Encounter for palliative care; Z66 Do not resuscitate; Z87.891 Personal history of nicotine dependence; Z90.49 Acquired absence of other specified parts of digestive tract; Z88.8 Allergy status to other drugs, medicaments and biological substances; Z88.2 Allergy status to sulfonamides; Z79.899 Other long term (current) drug therapy; Z79.02 Long term (current) use of antithrombotics/antiplatelets; G30.9 Alzheimer's disease, unspecified; F02.80 Dementia in other diseases classified elsewhere, unspecified severity, without behavioral disturbance, psychotic disturbance, mood disturbance, and anxiety; Z79.01 Long term (current) use of anticoagulants
CPT/HCPCS: 36415; 36569; 51701; 70450; 70496; 70498; 71045; 80048; 80053; 80061; 81001; 82140; 82607; 82803; 83036; 83735; 83880; 84100; 84443; 85025; 85610; 86850; 86900; 86901; 86922; 87088; 87186; 94660; 94760; 96366; 96375; 96376; 99285-25; A9270; C1751; C9113; G0378; J0692; J0696; J1953; J1956; J3430; J7121; Q9967